=== PATIENT | male | born 2000 | race Two or more races ===

== ENCOUNTER 2024-12-19 13:20 | Emergency (ER) | payer MEDICAID, SELFPAY ==
[2024-12-19 13:27] VITALS: BP 140/84; PULSE 89; RESP 18; TEMP 36.9; O2SAT 99
--- NOTE | 2024-12-19 13:28 | XR_ITS ---
Examination: Right elbow 3 views Technique: Elbow AP, oblique, lateral 3 views Exam date and time: December 19, 2024 1347 hours INDICATIONS: Pain and swelling involving the ungual beginning 3 days ago. FINDINGS: No fracture or dislocation No foreign body No elbow effusion IMPRESSION: No cortical bone destruction or foreign body.
[2024-12-19] MEDS: LIDOCAINE HCL 1% 20 ML VIAL INFL (13:43)
[2024-12-19] MEDS: DIPHTH,PERTUSS(ACELL),TET VAC 0.5 ML SYR- ADULT IMi (13:43)
--- NOTE | 2024-12-19 15:28 | PD.EDADULT ---
ED General RME/HPI General Chief complaint: General Adult/Misc Complain Stated complaint: PUSTULE ON R) ELBOW, PAINFUL Time Seen by Provider: 12/19/24 13:24 Source: patient Arrival date/time: 12/19/24 13:20 24-year-old male with no known medical history presents to the emergency room with a chief complaint of swelling and tenderness to his right elbow. Patient states the right be a thorn stuck in his right elbow as he works in the [employer]. Patient states this tenderness and swelling began on Wednesday. Mode of arrival: ambulatory Limitations: no limitations Related Data Previous Rx's ?Medication ?Instructions ?Recorded sulfamethoxazole 800 1 tab PO BID #14 tabs 12/19/24 mg-trimethoprim 160 mg tablet (Bactrim DS) Allergies Allergy/AdvReac Type Severity Reaction Status Date / Time No Known Allergies Allergy Verified 12/19/24 13:23 Review of Systems Review of Systems Systems Reviewed: All systems reviewed, normal except as documented Constitutional Constitutional: Reports system reviewed and no additional complaints, except as documented, Denies fatigue, Denies fever(s), Denies headache(s) and Denies weakness Eyes Eyes: Reports system reviewed and no additional complaints, except as documented, Denies blurry vision and Denies change in vision ENT Ears, Nose, Mouth, and Throat: Reports system reviewed and no additional complaints, except as documented, Denies otalgia, Denies headache(s), Denies nasal congestion, Denies throat swelling and Denies vertigo Cardiovascular Cardiovascular: Reports system reviewed and no additional complaints, except as documented, Denies chest pain, Denies dyspnea and Denies dyspnea on exertion Respiratory Respiratory: Reports system reviewed and no additional complaints, except as documented, Denies chest congestion, Denies cough, Denies dyspnea, Denies dyspnea on exertion and Denies wheezing Gastrointestinal Gastrointestinal: Reports system reviewed and no additional complaints, except as documented, Denies abdominal pain, Denies cramping, Denies nausea and Denies vomiting Genitourinary Genitourinary: Reports system reviewed and no additional complaints, except as documented, Denies dysuria and Denies hematuria Musculoskeletal Musculoskeletal: Reports system reviewed and no additional complaints, except as documented and Denies back pain Integumentary/Breasts Skin/Breast: Reports system reviewed and no additional complaints, except as documented, Reports skin pain and Reports wounds Neurologic Neurologic: Reports system reviewed and no additional complaints, except as documented, Denies confusion, Denies headache(s), Denies lack of coordination, Denies vertigo and Denies weakness Psychiatric Psychiatric: Reports system reviewed and no additional complaints, except as documented, Denies anxiety, Denies confusion, Denies depression, Denies paranoia, Denies suicidal ideation and Denies tactile hallucinations Endocrine Endocrine: Reports system reviewed and no additional complaints, except as documented and Denies fatigue Hematologic/Lymphatic Hematologic/Lymphatic: Reports system reviewed and no additional complaints, except as documented and Denies lymphadenopathy Allergic/Immunologic Allergic/Immunologic: Reports system reviewed and no additional complaints, except as documented, Denies throat swelling, Denies urticaria and Denies wheezing Past Medical History Social History SMOKING STATUS: Never smoker ED Exam General Limitations: Present no limitations General appearance: Present alert and in no apparent distress Head Head exam: Present atraumatic Eye Eye exam: Present normal appearance, PERRL and EOMI ENT ENT exam: Present normal exam, normal oropharynx and mucous membranes moist Neck Neck exam: Present normal inspection, full ROM and trachea midline Chest Chest inspection: Present normal inspection and symmetric chest wall rise Respiratory Respiratory exam: Present normal lung sounds bilaterally Cardiovascular Cardiovascular exam: Present regular rate, normal rhythm and normal heart sounds Abdominal Exam Abdominal exam: Present soft and normal bowel sounds Extremities Exam Extremities exam: Present normal inspection and full ROM Expanded Upper Extremity Exam Shoulder exam: Present normal inspection Arm exam: Present normal inspection Elbow exam: Present tenderness, swelling, erythema and effusion; Absent full ROM Back Exam Back exam: Present normal inspection and full ROM Neurological Exam Neurological exam: Present alert, oriented X3 and CN II-XII intact Psychiatric Psychiatric exam: Present normal affect and normal mood Skin Skin exam: Present warm, dry, intact and normal color Course Quality Measures none Orders Category Date Time Status Set Up Suture Tray STAT Care 12/19/24 13:28 Completed Wound Care NOW Care 12/19/24 13:28 Completed XR elbow comp RT min 3V Stat Exams 12/19/24 13:28 Completed Lidocaine 1% 20 ml [Xylocaine 1% 20 ML] Med 12/19/24 13:28 Discontinued 20 ml INFL X1 ONE TET,DIP/PERT AC (Adult)-Tdap [Boostrix Adult (Tdap) Med 12/19/24 13:28 Discontinued Vacc] 0.5 ml IMI .ONCE ONE Vital Signs Vital signs: Vital Signs Temperature 98.5 F 12/19/24 13:27 Pulse Rate 89 12/19/24 13:27 Respiratory Rate 18 12/19/24 13:27 Blood Pressure 140/84 H 12/19/24 13:27 Pulse Oximetry (%) 99 12/19/24 13:27 Oxygen Delivery Method Room Air 12/19/24 13:27 O2 saturation 99% within normal limits Procedures -ED Abscess I/D Site: other (Elbow) Side (if applicable): right Local Anesthetic: lidocaine 1% Amount of anesthesia used (mL): 3 Technique: incised with #11 blade Amount of fluid expressed (mL): 5 Irrigation: Yes Packing used?: none Discharge Plan Plan Patient Disposition: HOME (Self Care) Disposition Comment: Stable Prescriptions/Referrals Prescriptions/Med Rec: New sulfamethoxazole-trimethoprim [Bactrim DS] 800-160 mg tablet 1 tab PO BID Qty: 14 0RF Referrals: Yuval Teixeira MD [Primary Care Provider] - In 1 week Problem List Clinical Impression: Abscess of elbow Patient/Caregiver Discharge Instructions Education Materials: ED Abscess, Incision And Drainage Additional Instructions: Please follow-up with your primary care provider in the next 24 to 48 hours. For any evidence of worsening signs or symptoms return to the emergency room immediately Print Language: Yoruba Stand Alone Forms: Rhonda Award Info., Patient Portal Info Letter PA/COMMUNITY SERVICE PATROL OFFICER Supervising Physician PA/LUIZA Supervising Physician: Dr. Grant MDM Patient Acuity Low Acuity (complete MDM as needed) Clinical Information Provided by: none Medical Records reviewed None Meds/Rx considered, not ordered None Labs/Rad/Tests considered, not ordered None Chronic Illness/Social Conditions which may negatively complicate care or outcome(s)-explain: None or not applicable EKG EKG not done Labs Labs: Interpreted by me Imaging Imaging interpretation: Interpreted by me Imaging Interpretation(s): No acute fracture dislocation or acute foreign body in the right elbow Medication Administration(s) none Medication Administration History Discontinued Medications Diphtheria/Tetanus/Acell Pertussis (Diphth,Pertuss(Acell),Tet Vac 0.5 Ml Syr- Adult) 0.5 ml IMi .ONCE ONE Stop: 12/19/24 13:29 Last Admin: 12/19/24 13:43 Dose: 0.5 ml Documented By: Lidocaine HCl (Lidocaine Hcl 1% 20 Ml Vial) 20 ml INFL X1 ONE Stop: 12/19/24 13:29 Last Admin: 12/19/24 13:43 Dose: 20 ml Documented By: Diagnosis Differential Diagnosis ED Complaint MDM: Cellulitis of the right elbow/foreign body in the right elbow Diagnoses ruled out: Foreign body in the right elbow
== END 2024-12-19 16:09 | disposition home or self-care (01) ==
PROVIDERS: Emergency Provider Family Medicine; PCP Family Medicine
DX: L02.413 Cutaneous abscess of right upper limb (principal); Z23 Encounter for immunization
CPT/HCPCS: 10060; 73080; 90471; 90715; 99283; J3490

== ENCOUNTER 2025-07-16 20:05 | Emergency (ER) | payer MEDICAID, SELFPAY ==
[2025-07-16 20:06] VITALS: BMI 39.4
[2025-07-16 20:12] VITALS: BP 157/89; PULSE 119; RESP 18; TEMP 39.4; O2SAT 96
--- NOTE | 2025-07-16 20:34 | XR_ITS ---
Examination: Abdomen sonogram, Limited Date and time of exam: July 16, 2025, 210 hours INDICATIONS: Right upper abdominal pain beginning 2 days ago Technique: Real-time everett scale transabdominal sonographic images of the upper abdomen obtained. Findings: Normal gallbladder Normal common bile duct 0.3 cm Pancreatic head 3.1 cm Liver 16.5 cm fatty infiltration Normal hepatopetal portal venous flow Patent IVC IMPRESSION: Normal gallbladder Normal common bile duct
[2025-07-16 20:52] LABS: Basophils # (Auto) 0.0 Thou/mm3 (0.0-0.2); Basophils % (Auto) 0 % (0-2.5); Eosinophils # (Auto) 0.0 Thou/mm3 (0.0-0.5); Eosinophils % (Auto) 0 % (0-10); Hematocrit 45.5 % (41.0-53.0); Hemoglobin 15.4 g/dL (13.5-16.0); Immature Granulocytes Auto 0.02 Thou/mm3 (0.00-0.00); Lymphocytes # (Auto) 0.7 Thou/mm3 (1.0-4.8); Lymphocytes % (Auto) 8 % (10-50); Mean Corpuscular HGB Conc 33.8 g/dl (31.0-37.0); Mean Corpuscular Hemoglobin 29.0 pg (25.0-35.0); Mean Corpuscular Volume 86 fL (80-100); Monocytes # (Auto) 0.6 Thou/mm3 (0.0-0.8); Monocytes % (Auto) 7 % (0-12); Neutrophils # (Auto) 7.3 Thou/mm3 (1.8-7.7); Neutrophils % (Auto) 85 % (37-80); Nucleated Red Blood Cell # 0.00 Thou/mm3 (0.00-0.00); Nucleated Red Blood Cell % 0 /100 WBC (0); Platelet Count 266 Thou/mm3 (140-440); RDW Standard Deviation 41.4 fL (35.1-43.9); Red Blood Count 5.31 Miln/mm3 (4.50-5.90); White Blood Count 8.6 Thou/mm3 (3.8-10.6)
[2025-07-16 21:10] LABS: Influenza A Ag Negative; Influenza B Ag Negative; Strep A Rapid Negative (Negative)
[2025-07-16 21:14] LABS: Collection Type, Urine Voided; Squamous Epithelial Cell,Urine 0 /hpf (0-5)
[2025-07-16 21:17] LABS: Alanine Aminotransferase 221 U/L (10-49); Albumin, Serum 5.1 gm/dL (3.5-5.0); Anion Gap 11 (7-16); Aspartate Amino Transferase 83 U/L (0-34); BUN/Creatinine Ratio 8 Ratio (12-20); Bilirubin,Total 0.7 mg/dL (0.3-1.2); Blood Urea Nitrogen 8 mg/dL (9-23); Calcium 9.1 mg/dL (8.3-10.6); Carbon Dioxide 27.4 mMol/L (20.0-31.0); Chloride 101 mMol/L (98-107); Creatinine (Component) 1.0 mg/dL (0.6-1.3); Estimated Creatinine Clearance 123.4 mL/min (>60); Glucose 132 mg/dL (74-106); Osmolality,Calculated 277 (275-295); Potassium 3.7 mMol/L (3.4-5.1); Sodium 139 mMol/L (136-145); Total Protein 7.5 gm/dL (5.7-8.2); eGFR > 60 See Note
[2025-07-16 21:18] LABS: Albumin/Globulin Ratio 2.1 (1.2-2.2); Alkaline Phosphatase 98 U/L (46-116); Calcium (Corrected) 9.1 mg/dL (8.5-10.1); Globulin 2.4 gm/dL (2.3-3.5); Lipase 39 U/L (12-53)
[2025-07-16 21:23] LABS: Bilirubin,Urine Negative (Negative); Blood,Urine Trace (Negative); Clarity,Urine Clear (Clear/Hazy); Color,Urine Yellow (Lt Yel-Yel); Glucose, Urine Negative (Negative); Ketones,Urine Trace (Negative); Leukocyte Esterase,Urine Negative (Negative); Nitrite,Urine Negative (Negative); PH,Urine 6.0 (5.0-7.0); Protein,Urine Trace (Neg - Trace); RBC,Urine 3 /hpf (0-3); Specific Gravity,Urine 1.030 (1.001-1.035); Urobilinogen,Urine Negative mg/dL (0.0-1.0); WBC,Urine < 1 /hpf (0-5)
--- NOTE | 2025-07-16 21:40 | PD.EDRME ---
Rapid Medical Screening Exam RME Arrival date/time: 07/16/25 20:05 This is a case of 25-year-old male with no medical history came in in the emergency room due to upper abdominal pain and fever for 3 days worsening symptoms thus patient decided to sought consult here in the emergency room Chief Complaint: Fever Time Seen by Provider: 07/16/25 20:20 Vital signs: Vital Signs Temperature 102.9 F H 07/16/25 20:12 Pulse Rate 119 H 07/16/25 20:12 Respiratory Rate 18 07/16/25 20:12 Blood Pressure 157/89 H 07/16/25 20:12 Pulse Oximetry (%) 96 07/16/25 20:12 Oxygen Delivery Method Room Air 07/16/25 20:12 Exam: Moderate tenderness on the right upper and epigastric area no guarding no rebound no rigidity clear breath sound patient is tachycardic and febrile Clinical Impression: Abdominal pain fever
[2025-07-16 21:54] VITALS: TEMP 39.2
[2025-07-16] MEDS: IBUPROFEN TAB 400 MG TABLET 800 MG PO (21:54)
[2025-07-16 22:06] LABS: Lactate (Lactic Acid) 1.2 mMol/L (0.4-2.0)
--- NOTE | 2025-07-16 22:19 | XR_ITS ---
EXAMINATION: PA chest single view TECHNIQUE: Upright PA chest single view Date and time: July 16, 2025, 10:19 p.m. INDICATIONS: Fever 3 days. FINDINGS: Normal heart size Lungs are clear. Osseous structures are intact IMPRESSION: No active disease
--- NOTE | 2025-07-16 22:35 | PD.EDFEVER ---
ED Fever RME/HPI General Chief Complaint: Fever Stated Complaint: FEVER, ABD PAIN Time Seen by Provider: 07/16/25 20:20 Arrival date/time: 07/16/25 20:05 RME / HPI RME / HPI Narrative: 07/16/25 20:05 This is a case of 25-year-old male with no medical history came in in the emergency room due to upper abdominal pain and fever for 3 days worsening symptoms thus patient decided to sought consult here in the emergency room Dr. Monique?s Main ED Evaluation: 25yo male with no significant past medical history presents to the ED for complaints of intermittent generalized abdominal discomfort and fever x 3 days. Reports associated nausea and nonbloody diarrhea. Patient denies any vomiting, dysuria, chest pain, or any other associated symptoms. Denies any history of similar symptoms. Denies any previous abdominal surgeries. NKA. Related Data Previous Rx's ?Medication ?Instructions ?Recorded sulfamethoxazole 800 1 tab PO BID #14 tabs 12/19/24 mg-trimethoprim 160 mg tablet (Bactrim DS) diphenoxylate-atropine 2.5 1 tab PO QDAY PRN diarrhea #10 tabs 07/16/25 mg-0.025 mg tablet (Lomotil) ondansetron 4 mg disintegrating 4 mg PO Q6H PRN nausea and 07/16/25 tablet vomiting #20 tabs Allergies Allergy/AdvReac Type Severity Reaction Status Date / Time No Known Allergies Allergy Verified 07/16/25 20:06 Review of Systems Review of Systems Systems Reviewed: All systems reviewed, normal except as documented Past Medical History Social History SMOKING STATUS: Never smoker Physical Exam Narrative Physical exam: Generally patient is alert and smiling and in no obvious distress, heart mildly tachycardic rate with regular rhythm, lungs clear to auscultation equal bilaterally, abdomen soft bowel sounds present nondistended absolutely no tenderness. Skin is warm pale and dry without rash. Extremities show no edema. Neurologic exam shows Maize Coma Scale of 15 without focal motor deficit. Course Course Course Narrative: CXR is ordered for determining the etiology of fever. Quality Measures none Orders Category Date Time Status Bedside COVID-19 Antigen Test NOW Care 07/16/25 20:34 Active US gall bladder Stat Exams 07/16/25 20:34 Completed XR chest 1V Stat Exams 07/16/25 22:19 Taken Blood Culture (Lab) Stat Lab 07/16/25 22:00 Received CBC Stat Lab 07/16/25 20:44 Completed Comprehensive Metabolic Panel Stat Lab 07/16/25 20:44 Completed Influenza A & B Rapid Panel Stat Lab 07/16/25 20:45 Completed Lactic Acid [Lactate (Lactic Acid)] Stat Lab 07/16/25 21:58 Completed Lipase Stat Lab 07/16/25 20:44 Completed Strep A Rapid Stat Lab 07/16/25 20:45 Completed Urinalysis Stat Lab 07/16/25 20:52 Completed Ibuprofen Tab [Motrin Tab] Med 07/16/25 21:39 Discontinued 800 mg PO X1 ONE Vital Signs Vital signs: Vital Signs Temperature 102.9 F H 07/16/25 20:12 Pulse Rate 119 H 07/16/25 20:12 Respiratory Rate 18 07/16/25 20:12 Blood Pressure 157/89 H 07/16/25 20:12 Pulse Oximetry (%) 96 07/16/25 20:12 Oxygen Delivery Method Room Air 07/16/25 20:12 Fever MDM Narrative MDM Narrative:: Scribe Attestation: 07/16/25 - Carol Davdi am scribing for and in the presence of Dr. Monique. Patient's temperature is 102.6 degrees here in the emergency room. Patient was given ibuprofen. Gallbladder ultrasound was negative. Influenza swabs were negative. Rapid strep swab was negative. Chest x-ray was normal. White count is 8000. Patient's abdominal exam is completely benign. I do not believe colitis or appendicitis or diverticulitis at this time. Patient denies bloody diarrhea. Patient will be discharged on Lomotil and Zofran to be taken as prescribed. Follow-up with his doctor. Return to ER as needed or if condition worsens. Patient data External records reviewed:: [facility] previous records (Per chart review, patient has no relevant previous ED visits.) Clinical information provided by:: patient Social determinants that could affect healthcare access:: none Patient has the following chronic illnesses:: none How is presenting disease/condition affected by chronic disease/condition?: no chronic disease Evaluation data The following diagnostics were reviewed and interpreted by me:: lab results and radiology exam(s) Lab and/or radiology exams considered but not ordered:: none Interpretation Summary: [facility] Report Signed Patient: KORY HUFF Med. Record#: [id number] Birthdate: 2000 Age/Sex: 25 / M Location: [facility] Attending Dr: Ordering Physician: Sunny Mauro Date of Service: 07/16/25 Procedure(s): US gall bladder Accession Number(s): [id number] cc: Wilmar Potter MD; NO PRIMARY/FAMILY,PHYSICIAN; Sunny Mauro~ Examination: Abdomen sonogram, Limited Date and time of exam: July 16, 2025, 2101 hours INDICATIONS: Right upper abdominal pain beginning 2 days ago Technique: Real-time everett scale transabdominal sonographic images of the upper abdomen obtained. Findings: Normal gallbladder Normal common bile duct 0.3 cm Pancreatic head 3.1 cm Liver 16.5 cm fatty infiltration Normal hepatopetal portal venous flow Patent IVC IMPRESSION: Normal gallbladder Normal common bile duct Dictated By: Wilmar Potter MD Signed By: <Electronically signed by Wilmar Potter MD in OV> 07/16/25 2149 Medications / Prescriptions Medications or Prescriptions considered but not ordered:: none Medication administrations:: Medication Administration History Discontinued Medications Ibuprofen (Ibuprofen Tab 400 Mg Tablet) 800 mg PO X1 ONE Stop: 07/16/25 21:40 Last Admin: 07/16/25 21:54 Dose: 800 mg Documented By: OA see above Consultations Consultation(s) initiated? (list below): No Diagnosis Fever Differential Diagnosis: other (See MDM) Most likely diagnosis given after review of the tests above:: see clinical impression below Admission Indicated Admission indicated?: not indicated Admission Request Was there a request for admission?: No Disposition Plan Disposition Plan: Discharge Discharge Attestation Discharge Attestation: The patient and all family members were given an opportunity to ask questions and understood the discharge instructions. Discharge instructions specifically effects, indications for sooner follow up or return to the emergency department, and the expected course of current diagnosis. Patient condition: Stable Discharge Plan Plan Patient Disposition: HOME (Self Care) Prescriptions/Referrals Prescriptions/Med Rec: New diphenoxylate-atropine [Lomotil] 2.5-0.025 mg tablet 1 tab PO QDAY PRN (Reason: diarrhea) Qty: 10 0RF ondansetron 4 mg tablet,disintegrating 4 mg PO Q6H PRN (Reason: nausea and vomiting) Qty: 20 0RF No Action sulfamethoxazole-trimethoprim [Bactrim DS] 800-160 mg tablet 1 tab PO BID Qty: 14 0RF Referrals: No Primary/Family,Physician [Primary Care Provider] - In 1 week Problem List Clinical Impression: Diarrhea, Fever Patient/Caregiver Discharge Instructions Education Materials: ED Diarrhea, Unknown Cause Additional Instructions: Medication as prescribed. Use Tylenol and/or ibuprofen as needed for fever. Keep well-hydrated. Follow-up with your doctor. Return to ER as needed or if condition worsens. Print Language: Zimbabwean Stand Alone Forms: Rhonda Award Info., Patient Portal Info Letter
[2025-07-16 22:37] VITALS: BP 137/89; PULSE 112; RESP 18; TEMP 37.7; O2SAT 100
== END 2025-07-16 23:04 | disposition home or self-care (01) ==
PROVIDERS: Nurse Practitioner Family; Emergency Provider Emergency Medicine
DX: R50.9 Fever, unspecified (principal)
CPT/HCPCS: 36415; 71045; 76705; 80053; 81001; 83605; 83690; 85025; 87040; 87502; 87635; 87651; 99283; A9270

== ENCOUNTER 2025-07-17 03:45 | Emergency (ER) | payer MEDICAID, SELFPAY ==
[2025-07-17 03:45] VITALS: BMI 39.4
--- NOTE | 2025-07-17 04:16 | EDRME_ITS ---
Rapid Medical Screening Exam [facility] Arrival date/time: 07/17/25 03:45 Chief Complaint: GI Bleed RME Narrative: 25-year-old male who presents to the ER complaining of lower abdominal pain with hematochezia which started last night. Denies any nausea or vomiting or fever or pain with urination. I briefly performed a screening evaluation to initiate work-up and expedite care. Complete history, physical exam, and plan of care is deferred to the provider in the main ED. Exam: Head: Normocephalic, atraumatic. Respiratory: Normal effort. No respiratory distress or accessory muscle use. Neuro: Speech normal. Skin: Warm, dry, normal color. Psych: Pleasant. Normal affect. Cooperative. Clinical Impression: Hematochezia
--- NOTE | 2025-07-17 04:17 | XR_ITS ---
Examination: CT abdomen and pelvis without contrast. Coronal 3-D reconstructions. Sagittal 2-D reconstructions. Date and time of exam: July 17, 2025, 0524 hours INDICATIONS: Blood in the stool beginning 9 hours ago CTDI: vol (mGy): 11.2 DLP: (mGycm): 708 Technique: Axial images of the abdomen have been obtained, 3 mm slice thickness Intravenous contrast material has not been administered. Low dose protocols were performed. One or more of the following dose reduction techniques were used; automated exposure control, adjustment of the mA and/or KV according to patient size, use of iterative reconstruction technique. Findings: Limited noncontrast study No visualized liver or splenic lesion No gallstones No pancreatic or adrenal mass No renal or ureteral calculi, no hydronephrosis Small lymph nodes in the pericecal region with subtle wall thickening involving the colon Normal appendix No bowel obstruction Subtle wall thickening involving the colon Normal seminal vesicles No prostatomegaly Contracted urinary bladder Mild rectal wall thickening Intact osseous structures IMPRESSION: Suspicious for mild diffuse colitis, consider chron's disease Mild rectal wall thickening, consider proctitis
[2025-07-17 04:20] VITALS: BP 139/84; PULSE 109; RESP 19; TEMP 37.1; O2SAT 96
[2025-07-17 05:00] LABS: Basophils # (Auto) 0.0 Thou/mm3 (0.0-0.2); Basophils % (Auto) 0 % (0-2.5); Eosinophils # (Auto) 0.0 Thou/mm3 (0.0-0.5); Eosinophils % (Auto) 0 % (0-10); Hematocrit 44.6 % (41.0-53.0); Hemoglobin 15.5 g/dL (13.5-16.0); Immature Granulocytes Auto 0.02 Thou/mm3 (0.00-0.00); Lymphocytes # (Auto) 0.7 Thou/mm3 (1.0-4.8); Lymphocytes % (Auto) 9 % (10-50); Mean Corpuscular HGB Conc 34.8 g/dl (31.0-37.0); Mean Corpuscular Hemoglobin 29.6 pg (25.0-35.0); Mean Corpuscular Volume 85 fL (80-100); Monocytes # (Auto) 0.7 Thou/mm3 (0.0-0.8); Monocytes % (Auto) 8 % (0-12); Neutrophils # (Auto) 6.9 Thou/mm3 (1.8-7.7); Neutrophils % (Auto) 82 % (37-80); Nucleated Red Blood Cell # 0.00 Thou/mm3 (0.00-0.00); Nucleated Red Blood Cell % 0 /100 WBC (0); Platelet Count 252 Thou/mm3 (140-440); RDW Standard Deviation 41.2 fL (35.1-43.9); Red Blood Count 5.23 Miln/mm3 (4.50-5.90); White Blood Count 8.4 Thou/mm3 (3.8-10.6)
[2025-07-17 05:09] LABS: INR 1.0 (0.9-1.3); Prothrombin Time 10.9 Seconds (9.0-12.2)
[2025-07-17 05:15] LABS: Alanine Aminotransferase 190 U/L (10-49); Albumin, Serum 5.1 gm/dL (3.5-5.0); Albumin/Globulin Ratio 2.1 (1.2-2.2); Alkaline Phosphatase 90 U/L (46-116); Anion Gap 10 (7-16); Aspartate Amino Transferase 58 U/L (0-34); BUN/Creatinine Ratio 9 Ratio (12-20); Bilirubin,Total 1.0 mg/dL (0.3-1.2); Blood Urea Nitrogen 8 mg/dL (9-23); Calcium 9.1 mg/dL (8.3-10.6); Calcium (Corrected) 9.1 mg/dL (8.5-10.1); Carbon Dioxide 27.6 mMol/L (20.0-31.0); Chloride 100 mMol/L (98-107); Creatinine (Component) 0.9 mg/dL (0.6-1.3); Estimated Creatinine Clearance 137.1 mL/min (>60); Globulin 2.4 gm/dL (2.3-3.5); Glucose 106 mg/dL (74-106); Lipase 39 U/L (12-53); Osmolality,Calculated 273 (275-295); Potassium 3.6 mMol/L (3.4-5.1); Sodium 138 mMol/L (136-145); Total Protein 7.5 gm/dL (5.7-8.2); eGFR > 60 See Note
[2025-07-17 05:17] LABS: Collection Type, Urine Voided
[2025-07-17 05:22] LABS: Bilirubin,Urine Negative (Negative); Blood,Urine Trace (Negative); Clarity,Urine Clear (Clear/Hazy); Color,Urine Yellow (Lt Yel-Yel); Glucose, Urine Negative (Negative); Ketones,Urine Trace (Negative); Leukocyte Esterase,Urine Negative (Negative); Nitrite,Urine Negative (Negative); PH,Urine 6.0 (5.0-7.0); Protein,Urine Trace (Neg - Trace); RBC,Urine 2 /hpf (0-3); Specific Gravity,Urine 1.027 (1.001-1.035); Squamous Epithelial Cell,Urine < 1 /hpf (0-5); Urobilinogen,Urine Negative mg/dL (0.0-1.0); WBC,Urine 1 /hpf (0-5)
[2025-07-17 06:04] VITALS: BP 116/64; PULSE 98; RESP 18; TEMP 38; O2SAT 97
--- NOTE | 2025-07-17 06:13 | PRELIM_ITS ---
CT scan of the abdomen and pelvis without intravenous contrast (axial sections with sagittal and coronal reformats) July 17, 2025 0524 hours Clinical History: Periumbilical pain. Comparison: No prior study is available for comparison. Findings: The lung bases are clear. The liver, gallbladder, pancreas, spleen, kidneys and adrenals are unremarkable on this noncontrast study. No evidence of bowel obstruction. No evidence of appendicitis. There is no mesenteric or retroperitoneal adenopathy. The urinary bladder is no distal, limited evaluation. There is no free fluid or free air. The osseous structures are unremarkable. Thickening of the cecum and the ascending and transverse colon associated with peripheral prominent lymph nodes. Impression: Inflammatory changes of the ascending and transverse colon associated with peripheral lymphadenopathy, consider chron's disease in the differential diagnosis. Report Electronically Signed By: Ricardo Real 07/17/2025 6:13:32 AM [EST]
[2025-07-17] MEDS: ONDANSETRON ODT 4 MG TABRAP PO (06:48)
[2025-07-17] MEDS: CIPROFLOXACIN HCL 250 MG TABLET 500 MG PO (06:48)
--- NOTE | 2025-07-17 07:08 | PD.EDABDPN ---
ED Abdominal Pain RME/HPI General Chief Complaint: GI Bleed Stated complaint: BLOOD IN STOOL Time seen by provider: 07/17/25 05:57 Arrival date/time: 07/17/25 03:45 RME / HPI RME / HPI narrative: 25-year-old male who presents to the ER complaining of lower abdominal pain with hematochezia which started last night. Denies any nausea or vomiting or fever or pain with urination. I briefly performed a screening evaluation to initiate work-up and expedite care. Complete history, physical exam, and plan of care is deferred to the provider in the main ED. Exam: Head: Normocephalic, atraumatic. Respiratory: Normal effort. No respiratory distress or accessory muscle use. Neuro: Speech normal. Skin: Warm, dry, normal color. Psych: Pleasant. Normal affect. Cooperative. Impression: Hematochezia Related Data Previous Rx's ?Medication ?Instructions ?Recorded sulfamethoxazole 800 1 tab PO BID #14 tabs 12/19/24 mg-trimethoprim 160 mg tablet (Bactrim DS) diphenoxylate-atropine 2.5 1 tab PO QDAY PRN diarrhea #10 tabs 07/16/25 mg-0.025 mg tablet (Lomotil) ondansetron 4 mg disintegrating 4 mg PO Q6H PRN nausea and 07/16/25 tablet vomiting #20 tabs ciprofloxacin HCl 500 mg tablet 500 mg PO BID 5 days #10 tabs 07/17/25 (Cipro) metronidazole 500 mg tablet 500 mg PO BID 5 days #10 tabs 07/17/25 ondansetron 4 mg disintegrating 4 mg PO TID PRN nausea and 07/17/25 tablet vomiting 30 days #10 tabs prednisone 50 mg tablet 50 mg PO QDAY 5 days #5 tabs 07/17/25 Allergies Allergy/AdvReac Type Severity Reaction Status Date / Time No Known Allergies Allergy Verified 07/17/25 03:45 Course Quality Measures none Orders Category Date Time Status NPO NOW Care 07/17/25 04:17 Completed Diet NPO (NOW) Diet 07/17/25 04:[address] abdomen pelvis wo con Stat Exams 07/17/25 04:17 Completed CBC Stat Lab 07/17/25 04:48 Completed CMP [Comprehensive Metabolic Panel] Stat Lab 07/17/25 04:48 Completed Lipase Stat Lab 07/17/25 04:48 Completed Prothrombin Time with INR Stat Lab 07/17/25 04:48 Completed Urinalysis Stat Lab 07/17/25 05:14 Completed Urine Culture Stat Lab 07/17/25 05:14 Received Ciprofloxacin HCl [Ciprofloxacin] Med 07/17/25 06:41 Discontinued 500 mg PO X1 ONE Ondansetron Odt [Zofran Odt] Med 07/17/25 06:41 Discontinued 4 mg PO X1 ONE metroNIDAZOLE [Flagyl] Med 07/17/25 06:41 Discontinued 500 mg PO X1 ONE Vital Signs Vital signs: Vital Signs Temperature 98.8 F 07/17/25 04:20 Pulse Rate 109 H 07/17/25 04:20 Respiratory Rate 19 07/17/25 04:20 Blood Pressure 139/84 H 07/17/25 04:20 Pulse Oximetry (%) 96 07/17/25 04:20 Oxygen Delivery Method Room Air 07/17/25 04:20 Abdominal Pain MDM MDM Narrative MDM Narrative:: This section includes all my notes and documentations, including HPI, PE, and ED course. Kemal Arango MD HPI: 25-year-old male here to be evaluated with abdominal pain and bright red blood in stools since yesterday. Has nausea. No vomiting. No history of abdominal surgery. No fever or chills. No urinary symptoms. No other complaints. ROS: All negative except as documented in HPI. Physical Exam: General: Alert and oriented. No acute distress when remaining still. Eyes: Conjunctivae and lids clear. ENT: No nasal congestion. Neck: Supple. Heart: RRR. Lungs: No respiratory distress. Good air movement. No rhonchi, wheezing, rales. Abdomen: Soft and nontender. Normal bowel sounds. No distension. No rebound or guarding. Back: No CVA tenderness. Skin: Warm and dry. Neuro: Alert and oriented X 3. I reviewed all diagnostic test results: My review of the abdominal CT report is colitis. Blood tests and urine tests unremarkable. At this point, diagnoses include: Colitis Treatment here included: Zofran ODT 4 mg Oral Cipro 500 mg Oral Flagyl 100 mg Recommended outpatient management. Based on my best medical judgment, made decision no further evaluation or treatment indicated at this time. Patient understands and agrees to the discharge instructions customized and printed, see below. Discharge instructions from Dr. Arango: 1. After evaluation, your symptoms are due to colitis, infection/inflammation of your colon. 2. Take Cipro and Flagyl for the infection. 3. Zofran for nausea/vomiting. 4. Prednisone to decrease inflammation. 5. Clear liquid diet for 24 hours then advance as tolerated. 6. To prevent dehydration, increase oral fluid and maintain clear urine.? If dark or yellow, increase oral fluid. 7. See a private doctor on 07/18/2025 for recheck. Ask to review all test results and official radiology reports, to make sure you receive all necessary follow-ups and monitoring. To assess for serious intra-abdominal condition, ask for help with more investigation not available here in the ER.? Such as EGD or scoping the stomach, colonoscopy or scoping the colon, and referral to see traveling secretary. 8. Seek immediate medical care with worsening, fever, or with any concerns. Kemal Arango MD Patient data External records reviewed:: [facility] previous records Clinical information provided by:: patient Social determinants that could affect healthcare access:: none Patient has the following chronic illnesses:: Patient has no chronic illnesses. How is presenting disease/condition affected by chronic disease/condition?: no chronic disease Evaluation data The following diagnostics were reviewed and interpreted by me:: lab results and radiology exam(s) Lab and/or radiology exams considered but not ordered:: None Interpretation Summary: I reviewed all diagnostic test results: My review of the abdominal CT report is colitis. Blood tests and urine tests unremarkable. Medications / Prescriptions Medications or Prescriptions considered but not ordered:: None Medication administrations:: Medication Administration History Discontinued Medications Ciprofloxacin (Ciprofloxacin Hcl 250 Mg Tablet) 500 mg PO X1 ONE Stop: 07/17/25 06:42 Last Admin: 07/17/25 06:48 Dose: 500 mg Documented By: CVL Metronidazole (Metronidazole 250 Mg Tablet) 500 mg PO X1 ONE Stop: 07/17/25 06:42 Last Admin: 07/17/25 06:48 Dose: 500 mg Documented By: CVL Ondansetron HCl (Ondansetron Odt 4 Mg Tabrap) 4 mg PO X1 ONE; Protocol Stop: 07/17/25 06:42 Last Admin: 07/17/25 06:48 Dose: 4 mg Documented By: CVL Treatment here included: Zofran ODT 4 mg Oral Cipro 500 mg Oral Flagyl 100 mg Consultations Consultation(s) initiated? (list below): No Diagnosis Differential diagnosis abdominal pain: acute appendicitis, calculus of kidney, constipation, diverticulitis, gastroenteritis, pancreatitis and small bowel obstruction Most likely diagnosis given after review of the tests above:: Colitis Admission Indicated Admission indicated?: indicated Explain why admission is indicated or not indicated:: With significant improvement and no condition needing emergent intervention, there was no indication for admission. Admission Request Was there a request for admission?: No Disposition Plan Disposition Plan: Discharge Discharge Attestation Discharge Attestation: The patient and all family members were given an opportunity to ask questions and understood the discharge instructions. Discharge instructions specifically effects, indications for sooner follow up or return to the emergency department, and the expected course of current diagnosis. Patient condition: Stable Discharge Plan Plan Patient Disposition: HOME (Self Care) Prescriptions/Referrals Prescriptions/Med Rec: New metronidazole 500 mg tablet 500 mg PO BID 5 Days Qty: 10 0RF ciprofloxacin HCl [Cipro] 500 mg tablet 500 mg PO BID 5 Days Qty: 10 0RF prednisone 50 mg tablet 50 mg PO QDAY 5 Days Qty: 5 0RF ondansetron 4 mg tablet,disintegrating 4 mg PO TID PRN (Reason: nausea and vomiting) 30 Days Qty: 10 0RF No Action diphenoxylate-atropine [Lomotil] 2.5-0.025 mg tablet 1 tab PO QDAY PRN (Reason: diarrhea) Qty: 10 0RF ondansetron 4 mg tablet,disintegrating 4 mg PO Q6H PRN (Reason: nausea and vomiting) Qty: 20 0RF sulfamethoxazole-trimethoprim [Bactrim DS] 800-160 mg tablet 1 tab PO BID Qty: 14 0RF Referrals: Yuval Teixeira MD [Primary Care Provider, Family Practice] - In 1 week Problem List Clinical Impression: Colitis Patient/Caregiver Discharge Instructions Discharge Activity: activity as tolerated Education Materials: Understanding Colitis Additional Instructions: Discharge instructions from Dr. Arango: 1. After evaluation, your symptoms are due to colitis, infection/inflammation of your colon. 2. Take Cipro and Flagyl for the infection. 3. Zofran for nausea/vomiting. 4. Prednisone to decrease inflammation. 5. Clear liquid diet for 24 hours then advance as tolerated. 6. To prevent dehydration, increase oral fluid and maintain clear urine.? If dark or yellow, increase oral fluid. 7. See a private doctor on 07/18/2025 for recheck. Ask to review all test results and official radiology reports, to make sure you receive all necessary follow-ups and monitoring. To assess for serious intra-abdominal condition, ask for help with more investigation not available here in the ER.? Such as EGD or scoping the stomach, colonoscopy or scoping the colon, and referral to see traveling secretary. 8. Seek immediate medical care with worsening, fever, or with any concerns. Print Language: Telugu Stand Alone Forms: [employer]onda Award Info., Patient Portal Info Letter
[2025-07-17 07:09] VITALS: BP 129/69; PULSE 93; RESP 16; TEMP 37.7; O2SAT 97
== END 2025-07-17 07:24 | disposition home or self-care (01) ==
PROVIDERS: Physician Assistant; Emergency Provider Emergency Medicine; PCP Family Medicine
DX: K52.9 Noninfective gastroenteritis and colitis, unspecified (principal)
CPT/HCPCS: 36415; 74176; 80053; 81001; 83690; 85025; 85610; 87086; 99283; Q0162; A9270